=== PATIENT | female | born 1985 | race Caucasian/White ===

== ENCOUNTER 2024-12-19 13:24 | Emergency (ER) | payer OTHER ==
[2024-12-19 13:47] VITALS: BP 131/82; PULSE 84; RESP 18; TEMP 99.8; BMI 25.0
[2024-12-19] MEDS ORDERED: ACETAMINOPHEN INJECTION 100 ML ONE (14:03)
[2024-12-19] MEDS ORDERED: FAMOTIDINE 20 MG/50 ML IVPB 20 MG/50 ML MG IVPB ONE (14:03)
[2024-12-19] MEDS: SODIUM CHLORIDE 0.9% 500 ML INFUS.BAG IV ONE (14:05)
[2024-12-19] MEDS: FAMOTIDINE 20 MG/50 ML IVPB 20 MG/50 ML MG IVPB ONE (14:06)
[2024-12-19 14:15] LABS: HEMOGLOBIN 14.8 G/dL (10.7-15.3); MCH 30.7 pg (25.7-33.7); MCHC 35.1 g/dl (32.0-36.0); MEAN CELL VOLUME 87.4 fl (80-96); MEAN PLT VOLUME 8.6 fl (7.5-11.1); PLATELET COUNT 288.6 10^3/uL (134-434); RDW 14.5 % (11.6-15.6); WHITE BLOOD COUNT 9.7 10^3/uL (4.0-10.8)
[2024-12-19 14:35] LABS: HCG,QUALITATIVE URINE Negative
[2024-12-19 14:35] LABS: ALBUMIN 4.8 g/dl (3.4-5.0); BILIRUBIN,TOTAL 0.6 mg/dl (0.2-1); CALCIUM 9.7 mg/dl (8.5-10.1); CREATININE 0.7 mg/dl (0.6-1.3); MAGNESIUM 1.8 mg/dL (1.8-2.4); POTASSIUM 3.7 mmol/L (3.5-5.1); TOT PROT 7.4 g/dl (6.4-8.2)
[2024-12-19] MEDS: ACETAMINOPHEN 1000 MG/100 ML BAG IVPB ONE (14:35)
[2024-12-19] MEDS ORDERED: KETOROLAC TROMETHAMINE 30 MG/1 ML VIAL ONE (14:46)
[2024-12-19] MEDS ORDERED: CycloBENZAprine HCL 5 MG TABLET ONE (14:46)
[2024-12-19] MEDS: KETOROLAC TROMETHAMINE 15 MG/ML VIAL IVPUSH ONE (14:50)
[2024-12-19] MEDS: CycloBENZAprine HCL 10 MG TABLET (FP) PO ONE (14:50)
[2024-12-19 14:51] LABS: PLATELET ESTIMATE ADEQUATE
[2024-12-19 16:02] LABS: HIV INTERPRETATION NEGATIVE (NEGATIVE)
== END 2024-12-19 15:44 | disposition home or self-care (01) ==
LOC: FER 13:24
PROC: 3E033GC Introduction of Other Therapeutic Substance into Peripheral Vein, Percutaneous Approach (ICD-10-PCS; principal; 2024-12-19)
PROC: 3E033NZ Introduction of Analgesics, Hypnotics, Sedatives into Peripheral Vein, Percutaneous Approach (ICD-10-PCS; 2024-12-19)
PROC: 3E0333Z Introduction of Anti-inflammatory into Peripheral Vein, Percutaneous Approach (ICD-10-PCS; 2024-12-19)
DX: R07.81 Pleurodynia (principal)
CPT/HCPCS: 36415; 80053; 81003; 83735; 84484; 84703; 85027; 86803; 87086; 87389; 93005; 99284-25; J0131